=== PATIENT | male | born 1960 ===

== ENCOUNTER → 2017-03-21 | Outpatient (CLI) | payer OTHER ==
[2017-03-21 11:40] LABS: HEMATOCRIT 32.9 % (42-52); MEAN CELL VOLUME 86.4 fL (80-100); MEAN CORPUSCULAR HGB CONC 31.3 g/dl (32-36); MEAN PLATELET VOLUME 9.9 fL (7.4-10.4); PLATELET COUNT 241 K/uL (130-400); RED BLOOD COUNT 3.81 M/uL (4.7-6.1)
[2017-03-21 11:50] LABS: BLOOD UREA NITROGEN 14 mg/dl (7-18); BUN/CREATININE RATIO 19.3 (10-20); CALCIUM 9.2 mg/dl (8.5-10.1); CARBON DIOXIDE 28 mmol/L (21-32); CHLORIDE 104 mmol/L (98-107); CREATININE 0.71 mg/dl (0.60-1.40); GLUCOSE 93 mg/dl (70-99); POTASSIUM 3.8 mmol/L (3.5-5.1); SODIUM 138 mmol/L (136-145)
== END | disposition home or self-care (01) ==
LOC: C.LABUPNIT 10:21
PROVIDERS: ATTEND Family Medicine
DX: I27.82 Chronic pulmonary embolism (principal); I87.309 Chronic venous hypertension (idiopathic) without complications of unspecified lower extremity

== ENCOUNTER → 2017-03-22 | Outpatient (CLI) | payer OTHER | LOC: C.LABUPNIT 10:06 | PROVIDERS: ATTEND Nurse Practitioner Family | DX: M86.071 Acute hematogenous osteomyelitis, right ankle and foot (principal) ==

== ENCOUNTER → 2017-03-24 | Outpatient (CLI) | payer OTHER | LOC: C.LABSPEC 08:00 | PROVIDERS: ATTEND Nurse Practitioner Family | DX: M86.071 Acute hematogenous osteomyelitis, right ankle and foot (principal) ==

== ENCOUNTER → 2017-03-27 | Outpatient (CLI) | payer OTHER | LOC: C.LABUPNIT 10:09 | PROVIDERS: ATTEND Nurse Practitioner Family | DX: M86.071 Acute hematogenous osteomyelitis, right ankle and foot (principal) ==

== ENCOUNTER → 2017-03-28 | Outpatient (CLI) | payer OTHER ==
[2017-03-28 10:33] LABS: HEMATOCRIT 34.2 % (42-52); MEAN CELL VOLUME 86.6 fL (80-100); MEAN CORPUSCULAR HEMOGLOBIN 27.3 pg (25-34); MEAN CORPUSCULAR HGB CONC 31.6 g/dl (32-36); MEAN PLATELET VOLUME 9.8 fL (7.4-10.4); PLATELET COUNT 285 K/uL (130-400); RED BLOOD COUNT 3.95 M/uL (4.7-6.1); WHITE BLOOD COUNT 7.88 K/uL (4.8-10.8)
[2017-03-28 11:09] LABS: BLOOD UREA NITROGEN 16 mg/dl (7-18); BUN/CREATININE RATIO 23.5 (10-20); CALCIUM 9.3 mg/dl (8.5-10.1); CARBON DIOXIDE 26 mmol/L (21-32); CHLORIDE 105 mmol/L (98-107); CREATININE 0.68 mg/dl (0.60-1.40); GLUCOSE 97 mg/dl (70-99); POTASSIUM 4.1 mmol/L (3.5-5.1); SODIUM 139 mmol/L (136-145)
== END | disposition home or self-care (01) ==
LOC: C.LABUPNIT 09:17
PROVIDERS: ATTEND Nurse Practitioner Family
DX: M86.071 Acute hematogenous osteomyelitis, right ankle and foot (principal); I87.309 Chronic venous hypertension (idiopathic) without complications of unspecified lower extremity

== ENCOUNTER → 2017-03-29 | Outpatient (CLI) | payer OTHER | LOC: C.LABUPNIT 04:45 | PROVIDERS: ATTEND Nurse Practitioner Family | DX: M86.071 Acute hematogenous osteomyelitis, right ankle and foot (principal) ==

== ENCOUNTER → 2017-03-31 | Outpatient (CLI) | payer OTHER | LOC: C.LABUPNIT 09:52 | PROVIDERS: ATTEND Nurse Practitioner Family | DX: M86.071 Acute hematogenous osteomyelitis, right ankle and foot (principal) ==

== ENCOUNTER → 2017-04-03 | Outpatient (CLI) | payer OTHER | END | disposition home or self-care (01) | LOC: C.LABUPNIT 10:58 | PROVIDERS: ATTEND Nurse Practitioner Family | DX: Z01.89 Encounter for other specified special examinations (principal) ==

== ENCOUNTER → 2017-04-04 | Outpatient (CLI) | payer OTHER ==
[2017-04-04 10:17] LABS: HEMATOCRIT 34.4 % (42-52); MEAN CELL VOLUME 86.4 fL (80-100); MEAN CORPUSCULAR HEMOGLOBIN 26.6 pg (25-34); MEAN CORPUSCULAR HGB CONC 30.8 g/dl (32-36); MEAN PLATELET VOLUME 10.4 fL (7.4-10.4); PLATELET COUNT 281 K/uL (130-400); RED BLOOD COUNT 3.98 M/uL (4.7-6.1); WHITE BLOOD COUNT 8.22 K/uL (4.8-10.8)
== END ==
LOC: C.LABUPNIT 10:02
PROVIDERS: ATTEND Nurse Practitioner Family
DX: I87.309 Chronic venous hypertension (idiopathic) without complications of unspecified lower extremity (principal); F10.10 Alcohol abuse, uncomplicated

== ENCOUNTER → 2017-04-05 | Outpatient (CLI) | payer OTHER ==
[2017-04-05 09:14] LABS: BLOOD UREA NITROGEN 27 mg/dl (7-18); BUN/CREATININE RATIO 37.2 (10-20); CALCIUM 9.5 mg/dl (8.5-10.1); CARBON DIOXIDE 29 mmol/L (21-32); CHLORIDE 104 mmol/L (98-107); CREATININE 0.72 mg/dl (0.60-1.40); GLUCOSE 107 mg/dl (70-99); POTASSIUM 4.1 mmol/L (3.5-5.1); SODIUM 137 mmol/L (136-145)
== END | disposition home or self-care (01) ==
LOC: C.LABUPNIT 08:47
PROVIDERS: ATTEND Nurse Practitioner Family
DX: M86.071 Acute hematogenous osteomyelitis, right ankle and foot (principal); M62.81 Muscle weakness (generalized)

== ENCOUNTER → 2017-04-07 | Outpatient (CLI) | payer OTHER | LOC: C.LABUPNIT 07:55 | PROVIDERS: ATTEND Nurse Practitioner Family | DX: M86.071 Acute hematogenous osteomyelitis, right ankle and foot (principal) ==

== ENCOUNTER → 2017-04-10 | Outpatient (CLI) | payer OTHER | LOC: C.LABUPNIT 03:30 | PROVIDERS: ATTEND Nurse Practitioner Family | DX: M86.071 Acute hematogenous osteomyelitis, right ankle and foot (principal) ==

== ENCOUNTER → 2017-04-11 | Outpatient (CLI) | payer OTHER ==
[2017-04-11 10:30] LABS: HEMATOCRIT 34.9 % (42-52); MEAN CELL VOLUME 86.2 fL (80-100); MEAN CORPUSCULAR HEMOGLOBIN 27.4 pg (25-34); MEAN CORPUSCULAR HGB CONC 31.8 g/dl (32-36); MEAN PLATELET VOLUME 10.3 fL (7.4-10.4); PLATELET COUNT 273 K/uL (130-400); RED BLOOD COUNT 4.05 M/uL (4.7-6.1); WHITE BLOOD COUNT 11.06 K/uL (4.8-10.8)
== END ==
LOC: C.LABUPNIT 09:54
PROVIDERS: ATTEND Nurse Practitioner Family
DX: M86.071 Acute hematogenous osteomyelitis, right ankle and foot (principal)

== ENCOUNTER → 2017-04-12 | Outpatient (CLI) | payer OTHER | LOC: C.LABUPUNI 07:36 | PROVIDERS: ATTEND Nurse Practitioner Family | DX: M86.071 Acute hematogenous osteomyelitis, right ankle and foot (principal) ==

== ENCOUNTER → 2017-04-13 | Outpatient (CLI) | payer OTHER ==
[2017-04-13 08:16] LABS: BLOOD UREA NITROGEN 24 mg/dl (7-18); BUN/CREATININE RATIO 33.4 (10-20); CALCIUM 9.1 mg/dl (8.5-10.1); CARBON DIOXIDE 30 mmol/L (21-32); CHLORIDE 103 mmol/L (98-107); CREATININE 0.71 mg/dl (0.60-1.40); GLUCOSE 117 mg/dl (70-99); POTASSIUM 4.1 mmol/L (3.5-5.1); SODIUM 138 mmol/L (136-145)
== END ==
LOC: C.LABUPNIT 07:54
PROVIDERS: ATTEND Nurse Practitioner Family
DX: M86.071 Acute hematogenous osteomyelitis, right ankle and foot (principal); M62.81 Muscle weakness (generalized)

== ENCOUNTER → 2017-04-14 | Outpatient (CLI) | payer OTHER ==
[2017-04-14 10:41] LABS: ALT/SGPT 28 U/L (12-78); AST/SGOT 16 U/L (15-37); BLOOD UREA NITROGEN 27 mg/dl (7-18); BUN/CREATININE RATIO 39.2 (10-20); CALCIUM 9.4 mg/dl (8.5-10.1); CARBON DIOXIDE 26 mmol/L (21-32); CHLORIDE 104 mmol/L (98-107); CREATININE 0.69 mg/dl (0.60-1.40); GLUCOSE 99 mg/dl (70-99); POTASSIUM 4.2 mmol/L (3.5-5.1); SODIUM 139 mmol/L (136-145)
[2017-04-14 10:43] LABS: ALB/GLOB RATIO 1.2 (0.9-2); ALKALINE PHOSPHATASE 81 U/L (45-117)
== END | disposition home or self-care (01) ==
LOC: C.LABUPNIT 08:56
PROVIDERS: ATTEND Nurse Practitioner Family
DX: M86.071 Acute hematogenous osteomyelitis, right ankle and foot (principal)

== ENCOUNTER → 2017-04-17 | Outpatient (CLI) | payer OTHER ==
[2017-04-17 05:41] LABS: BASO % 0.6 %; BASO ABS # 0.06 K/uL (0-0.2); COMPLETE YES; EOS % 12.1 %; HEMATOCRIT 35.2 % (42-52); IG% 1.2 %; LYMPH % 21.5 %; MEAN CELL VOLUME 84.2 fL (80-100); MEAN CORPUSCULAR HEMOGLOBIN 26.8 pg (25-34); MEAN CORPUSCULAR HGB CONC 31.8 g/dl (32-36); MEAN PLATELET VOLUME 10.1 fL (7.4-10.4); NEUT % 51.6 %; PLATELET COUNT 253 K/uL (130-400); RED BLOOD COUNT 4.18 M/uL (4.7-6.1); WHITE BLOOD COUNT 9.32 K/uL (4.8-10.8)
[2017-04-17 06:00] LABS: ALT/SGPT 27 U/L (12-78); AST/SGOT 14 U/L (15-37); BLOOD UREA NITROGEN 24 mg/dl (7-18); BUN/CREATININE RATIO 33.1 (10-20); CALCIUM 9.5 mg/dl (8.5-10.1); CARBON DIOXIDE 30 mmol/L (21-32); CHLORIDE 104 mmol/L (98-107); CREATININE 0.74 mg/dl (0.60-1.40); GLUCOSE 112 mg/dl (70-99); SODIUM 139 mmol/L (136-145)
[2017-04-17 06:02] LABS: ALB/GLOB RATIO 1.2 (0.9-2); ALKALINE PHOSPHATASE 85 U/L (45-117)
== END | disposition home or self-care (01) ==
LOC: C.LABUPNIT 10:01
PROVIDERS: ATTEND Nurse Practitioner Family
DX: M86.071 Acute hematogenous osteomyelitis, right ankle and foot (principal)

== ENCOUNTER → 2017-04-19 | Outpatient (CLI) | payer OTHER ==
[2017-04-19 10:15] LABS: BASO % 0.8 %; BASO ABS # 0.08 K/uL (0-0.2); COMPLETE YES; EOS % 13.5 %; HEMATOCRIT 34.8 % (42-52); LYMPH % 24.7 %; MEAN CELL VOLUME 84.7 fL (80-100); MEAN CORPUSCULAR HEMOGLOBIN 27.3 pg (25-34); MEAN CORPUSCULAR HGB CONC 32.2 g/dl (32-36); MEAN PLATELET VOLUME 10.1 fL (7.4-10.4); MONO % 9.9 %; NEUT % 50.1 %; PLATELET COUNT 254 K/uL (130-400); RED BLOOD COUNT 4.11 M/uL (4.7-6.1); WHITE BLOOD COUNT 10.52 K/uL (4.8-10.8)
[2017-04-19 10:25] LABS: ALT/SGPT 29 U/L (12-78); AST/SGOT 13 U/L (15-37); BLOOD UREA NITROGEN 24 mg/dl (7-18); BUN/CREATININE RATIO 33.8 (10-20); CARBON DIOXIDE 29 mmol/L (21-32); CHLORIDE 102 mmol/L (98-107); CREATININE 0.71 mg/dl (0.60-1.40); GLUCOSE 110 mg/dl (70-99); POTASSIUM 3.8 mmol/L (3.5-5.1); SODIUM 137 mmol/L (136-145)
[2017-04-19 10:27] LABS: ALB/GLOB RATIO 1.3 (0.9-2); ALKALINE PHOSPHATASE 86 U/L (45-117)
== END ==
LOC: C.LABUPNIT 09:22
PROVIDERS: ATTEND Nurse Practitioner Family
DX: M86.071 Acute hematogenous osteomyelitis, right ankle and foot (principal)